=== PATIENT | female | born 1995 | race Caucasian/White ===

== ENCOUNTER 2018-10-21 12:36 | Outpatient (CLI) | payer BC ==
--- NOTE | 2018-10-21 13:32 | ULT ---
ULTRASOUND THYROID: 10/21/18 HISTORY: Thyroiditis. COMPARISON: None. FINDINGS: Real time connolly scale and color evaluation of the thyroid was performed. The background echotexture is markedly heterogeneous with hypervascularity. The right lobe measures 6.1 x 1.9 x 2 cm and left lobe measures 5.6 x 1.9 x 1.9 cm. Isthmus is 6 mm AP dimension. No suspicious thyroid nodule. 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 No suspicious n odule per TI-RADS criteria. POS: HOME
== END 2018-10-21 12:37 | disposition home or self-care (01) ==
LOC: BICULT 12:36
PROVIDERS: ATTEND Internal Medicine Endocrinology, Diabetes & Metabolism
DX: E06.9 Thyroiditis, unspecified (principal); R94.6 Abnormal results of thyroid function studies; E06.3 Autoimmune thyroiditis
CPT/HCPCS: 36415; 76536; 84439; 84443; 84481; 86376

== ENCOUNTER 2019-10-14 14:15 | Outpatient (CLI) | payer BC ==
--- NOTE | 2019-10-14 14:44 | ULT ---
Exam: Thyroid ultrasound COMPARISON: 10/21/2018 HISTORY: Past medical history of thyroiditis FINDINGS: Heterogeneous echotexture throughout the thyroid gland, without discrete solid, mixed solid cystic or cystic lesion Thyroid isthmus: 0.5 cm Right thyroid lobe: 1.8 x 1.6 x 5.5 cm Left thyroid lobe: 1.9 x 2.0 x 5.4 cm IMPRESSION: Diffusely heterogeneous thyroid gland without discrete masses or nodules. Mild thyromegal y.
== END 2019-10-14 14:16 | disposition home or self-care (01) ==
LOC: SCSULT 14:15
PROVIDERS: ATTEND Internal Medicine Endocrinology, Diabetes & Metabolism
DX: E04.8 Other specified nontoxic goiter (principal); E01.0 Iodine-deficiency related diffuse (endemic) goiter
CPT/HCPCS: 76536